=== PATIENT | female | born 1990 | race Caucasian/White ===

== ENCOUNTER 2018-02-28 19:01 | Emergency (ER) | payer SELFPAY ==
[2018-02-28] MEDS ORDERED: SULFAMETHOXAZOLE/TRIMETHOPRIM 800-160 MG TABLET PO ONE (20:30)
[2018-02-28] MEDS ORDERED: DICLOXACILLIN SODIUM 250 MG CAPSULE PO ONE (20:44)
[2018-02-28] MEDS ORDERED: CEPHALEXIN 500 MG CAPSULE PO ONE (20:48)
--- NOTE | 2018-02-28 20:48 | ER Document Report ---
HPI - HPI Pain Level: 5 Context: Patient is a 27-year-old female who presents emergency room with chief complaint swelling in the medial aspect of her right pinky. Patient states that it is been there for the past week but got worse over the past 3 days. She admits to significant swelling, redness and tenderness she denies any streaking, fever or chills. Patient denies any purulent drainage she does admit to history of recurrent tobacco user Patient is currently in a methadone program - DERM Skin Color: Normal Past Medical History - Social History Smoking Status: Current Every Day Smoker Chew tobacco use (# tins/day): No Frequency of alcohol use: None Drug Abuse: None Family History: Reviewed & Not Pertinent Patient has suicidal ideation: No Patient has homicidal ideation: No Pulmonary Medical History: Reports: Hx Asthma Neurological Medical History: Reports: Hx Migraine Renal/ Medical History: Denies: Hx Peritoneal Dialysis Past Surgical History: Reports: Hx Tonsillectomy Vertical Provider Document - CONSTITUTIONAL Agree With Documented VS: Yes Notes: PHYSICAL EXAM GENERAL: Alert, interacts well. EXTREMITIES: Moves all 4 extremities spontaneously. No edema, radial pulses 2/4 bilaterally. No cyanosis. NEUROLOGICAL: Alert and oriented x4. Normal speech. PSYCH: Normal affect, normal mood. SKIN: Warm, dry, normal turgor. Patient with evidence of cellulitis and eschar over the medial aspect of the right proximal phalanx - INFECTION CONTROL TRAVEL OUTSIDE OF THE [place] IN LAST 30 DAYS: No Course - Re-evaluation Re-evalutation: 02/28/18 22:37 Patient is a 27-year-old female who presents with cellulitis and concerns for underlying abscess of the proximal phalanx of the right pinky finger. X-ray without any evidence of osseous involvement. Vital signs are stable. Patient' s declining for incision and drainage wound was cleaned and the removed to allow for proper evacuation of purulent material within the site. Patient initiated on antibiotics and to follow-up with primary care. - Vital Signs Vital signs: Temp Pulse Resp BP Pulse Ox 98.4 F 86 16 76/62 L 99 02/28/18 19:12 02/28/18 19:12 02/28/18 19:12 02/28/18 19:12 02/28/18 19:12 - Diagnostic Test Radiology reviewed: Image reviewed, Reports reviewed Discharge - Discharge Clinical Impression: Cellulitis Condition: Good Disposition: HOME, SELF-CARE Instructions: Abscess (OM), MRSA Cellulitis ([facility]) Prescriptions: Cephalexin Monohydrate [Keflex 500 mg Capsule] 500 mg PO Q6H 5 Days capsule Sulfamethoxazole/Trimethoprim [Bactrim Ds Tablet] 1 each PO BID #10 tablet Referrals: ADAM RUST MD [COMMUNITY BASED STAFF] - Follow up in 3-5 days
--- NOTE | 2018-02-28 21:09 | RADIOLOGY REPORT (SQ) ---
EXAM DESCRIPTION: FINGER RIGHT COMPLETED DATE/TIME: 02/28/2018 8:59 pm REASON FOR STUDY: swelling, h/o MRSA COMPARISON: None. NUMBER OF VIEWS: Three views. TECHNIQUE: AP, lateral, and oblique images acquired of the right fifth finger. LIMITATIONS: None. FINDINGS: MINERALIZATION: Normal. BONES: No acute fracture or dislocation. No worrisome bone lesions. SOFT TISSUES: Soft tissue swelling. No foreign body. OTHER: No other significant finding. IMPRESSION: SOFT TISSUE SWELLING WITHOUT ACUTE OSSEOUS ABNORMALITY. COMMENT: SITE OF TRAUMA/COMPLAINT MARKED/STAMP COMPLETED: YES. TECHNICAL DOCUMENTATION: JOB ID: [id number] [employer]- All Rights Reserved Reading location - IP/workstation name: [email or web address]
[2018-02-28] MEDS ORDERED: LIDOCAINE 1% INJ-PF (10 MG/ML) 30 ML SDV INJ ONE (21:14)
[2018-02-28 22:48] VITALS: BP 122/70
== END 2018-02-28 22:48 | disposition home or self-care (01) ==
LOC: ER 19:01
DX: L03.011 Cellulitis of right finger (principal); M79.89 Other specified soft tissue disorders; F17.200 Nicotine dependence, unspecified, uncomplicated; J45.909 Unspecified asthma, uncomplicated
CPT/HCPCS: 99283

== ENCOUNTER 2018-04-27 18:09 | Emergency (ER) | payer SELFPAY ==
[2018-04-27] MEDS ORDERED: ONDANSETRON 4 MG TAB.RAPDIS PO ONE (19:34)
[2018-04-27] MEDS ORDERED: NORMAL SALINE 1000 ML 1,000 ML IV ONE (19:35)
--- NOTE | 2018-04-27 19:37 | ER Document Report ---
ED Medical Screen (RME) - General Chief Complaint: Nausea/Vomiting Stated Complaint: VOMITING, HEADACHE Time Seen by Provider: 04/27/18 19:34 Notes: 27-year-old female, at "around 4 months ", chief complaint of vomiting. She states she has vomiting related to into the second trimester with every , states she ran out of Zofran, states she is dehydrated and she cannot stop vomiting every time she eats or drinks. Vomited at least 6 times today. Denies fever chills, denies any particular area of abdominal pain. She takes methadone, denies any other medications. Denies vaginal bleeding. TRAVEL OUTSIDE OF THE [place] IN LAST 30 DAYS: No - Related Data Allergies/Adverse Reactions: cefaclor [From Ceclor] Allergy (Verified 04/27/18 18:15) sumatriptan [From Imitrex] Allergy (Verified 04/27/18 18:15) Past Medical History Pulmonary Medical History: Reports: Hx Asthma Neurological Medical History: Reports: Hx Migraine Renal/ Medical History: Denies: Hx Peritoneal Dialysis Past Surgical History: Reports: Hx Tonsillectomy Physical Exam - Vital signs Vitals: Temp Pulse Resp BP Pulse Ox 98.0 F 71 18 119/61 100 04/27/18 18:17 04/27/18 18:17 04/27/18 18:17 04/27/18 18:17 04/27/18 18:17 - Cardiovascular Rhythm: Regular. No: Tachycardia Heart sounds: Normal auscultation, S1 appreciated, S2 appreciated - Abdominal Tenderness: Tender - Minimal upper abdominal tenderness, difficult to examine with sitting position in triage Course - Re-evaluation Re-evalutation: 04/27/18 19:37 I have greeted and performed a rapid initial assessment of this patient. A comprehensive ED assessment and evaluation of the patient, analysis of test results and completion of the medical decision making process will be conducted by additional ED providers. - Vital Signs Vital signs: Temp Pulse Resp BP Pulse Ox 98.0 F 71 18 119/61 100 04/27/18 18:17 04/27/18 18:17 04/27/18 18:17 04/27/18 18:17 04/27/18 18:17
[2018-04-27 20:20] LABS: ABSOLUTE EOSINOPHILS # (AUTO) 0.2 10^3/uL (0.0-0.6); ABSOLUTE LYMPHOCYTES (AUTO) 1.6 10^3/uL (0.5-4.7); ABSOLUTE MONOCYTES (AUTO) 0.2 10^3/uL (0.1-1.4); ABSOLUTE NEUT (AUTO) 3.7 10^3/uL (1.7-8.2); BASOPHILS % (AUTO) 0.4 % (0-2); EOSINOPHILS % (AUTO) 3.6 % (0-6); HEMATOCRIT 34.2 % (36.0-47.0); HEMOGLOBIN 11.3 g/dL (12.0-15.5); LYMPHOCYTES % (AUTO) 27.7 % (13-45); MEAN CORPUSCULAR HEMOGLOBIN 28.7 pg (27.0-33.4); MEAN CORPUSCULAR HGB CONC 33.1 g/dL (32.0-36.0); MEAN CORPUSCULAR VOLUME 87 fl (80-97); MONOCYTES % (AUTO) 4.2 % (3-13); PLATELET COUNT 224 10^3/uL (150-450); RED BLOOD COUNT 3.94 10^6/uL (3.72-5.28); RED CELL DISTRIBUTION WIDTH 17.5 % (11.5-14.0); SEGMENTED NEUTROPHILS % (AUTO) 64.1 % (42-78); TOTAL CELLS COUNTED % (AUTO) 100 %; WHITE BLOOD COUNT 5.7 10^3/uL (4.0-10.5)
[2018-04-27] MEDS ORDERED: ONDANSETRON ODT 4 MG TAB (6 TAB/ER DISP) PO PRN (20:27)
[2018-04-27 20:30] VITALS: BP 109/73
--- NOTE | 2018-04-27 20:30 | ER Document Report ---
HPI - HPI Pain Level: 1 Context: 27-year-old female, at "around 4 months ", chief complaint of vomiting. She states she has vomiting related to into the second trimester with every , states she ran out of Zofran, states she is dehydrated and she cannot stop vomiting every time she eats or drinks. Vomited at least 6 times today. Denies fever chills, denies any particular area of abdominal pain. She takes methadone, denies any other medications. Denies vaginal bleeding. - DERM Skin Color: Normal Past Medical History - General Information source: Patient - Social History Smoking Status: Current Every Day Smoker Smoking Education Provided: Yes - <3 min Drug Abuse: None Lives with: Alone Family History: Reviewed & Not Pertinent Patient has suicidal ideation: No Patient has homicidal ideation: No Pulmonary Medical History: Reports: Hx Asthma Neurological Medical History: Reports: Hx Migraine Renal/ Medical History: Denies: Hx Peritoneal Dialysis Past Surgical History: Reports: Hx Tonsillectomy - Immunizations Hx Diphtheria, Pertussis, Tetanus Vaccination: Yes Vertical Provider Document - CONSTITUTIONAL General Appearance: WD/WN, No Apparent Distress - INFECTION CONTROL TRAVEL OUTSIDE OF THE [place] IN LAST 30 DAYS: No - HEENT HEENT: Atraumatic, Normal ENT Exam, Normocephalic - NECK Neck: Normal Inspection - RESPIRATORY Respiratory: Breath Sounds Normal, No Respiratory Distress - CARDIOVASCULAR Cardiovascular: Regular Rate, Regular Rhythm - GI/ABDOMEN Gastrointestinal: Abdomen Soft. negative: Abdomen Non-Tender - Very minimal generalized abdominal tenderness, nonspecific, no guarding - BACK Back: Normal Inspection - MUSCULOSKELETAL/EXTREMETIES Musculoskeletal/Extremeties: MAEW, FROM, Non-Tender - NEURO Level of Consciousness: Awake, Alert, Appropriate - DERM Integumentary: Warm, Dry, No Rash Course - Re-evaluation Re-evalutation: Workup incomplete (only CBC resulted), however patient states she is ready to leave, not willing to stay for additional evaluation. She has had the zofran, reports she feels fine now, has been drinking fluids since she was medicated. States she has a followup with the health department already scheduled for tomorrow, wants testing then. Requests zofran for home. CBC is unremarkable. Patient is not tachycardic, hypotensive, and she is quite well-appearing. No vaginal bleeding, lower abdominal tenderness, or reported symptoms suggesting ectopic or rupture. Nonspecific abdominal pain with no particular areas of tenderness, no guarding. Discharged with medications, discussed return precautions, patient states understanding and agreement. - Vital Signs Vital signs: Temp Pulse Resp BP Pulse Ox 98.0 F 71 18 119/61 100 04/27/18 18:17 04/27/18 18:17 04/27/18 18:17 04/27/18 18:17 04/27/18 18:17 - Laboratory Result Diagrams: 04/27/18 20:00 04/27/18 20:00 Laboratory results interpreted by me: 04/27/18 20:00 Hgb 11.3 L Hct 34.2 L RDW 17.5 H Discharge - Discharge Clinical Impression: Vomiting affecting Condition: Stable Disposition: HOME, SELF-CARE Additional Instructions: Your workup to this point did not show any concerning abnormalities. Take Zofran as prescribed, drink plenty of fluids, you can take diphenhydramine to help with nausea as well. Pepcid can help with stomach upset as well. Start with bland foods, slowly progress. Follow-up closely with health department tomorrow and then women's health as referred. Return if you worsen including uncontrolled vomiting, passing out, vaginal bleeding, severe abdominal pain, fever, or any other concerning symptoms. Prescriptions: Ondansetron [Zofran Odt 4 mg Tablet] 1 - 2 tab PO Q4H PRN #30 tab.rapdis PRN Reason: For Nausea/Vomiting Referrals: [facility] [Provider Group] - Follow up as needed
== END 2018-04-27 20:43 | disposition home or self-care (01) ==
LOC: ER 18:09
DX: O21.9 Vomiting of pregnancy, unspecified (principal); O99.519 Diseases of the respiratory system complicating pregnancy, unspecified trimester; J45.909 Unspecified asthma, uncomplicated; O99.330 Smoking (tobacco) complicating pregnancy, unspecified trimester; Z79.891 Long term (current) use of opiate analgesic; Z3A.00 Weeks of gestation of pregnancy not specified
CPT/HCPCS: 99284; 36415; 85025; S0119

== ENCOUNTER 2018-08-09 14:25 | Emergency (ER) | payer SELFPAY ==
[2018-08-09 14:36] VITALS: BP 105/63
--- NOTE | 2018-08-09 15:03 | ER Document Report ---
ED General - General Chief Complaint: Abdominal Pain Stated Complaint: ABDOMINAL PAIN Time Seen by Provider: 08/09/18 14:38 Notes: Patient is a 28-year-old female, , unknown gestational age that presents to the emergency department for chief complaint of pelvic cramping and fullness. Patient states she is been having these symptoms over the last several days, and seemingly worse today, she had associated nausea but no vomiting. She claims she is had some dysuria as well. She does not know the first date of her last menstrual period, she estimates may be she had a period in November, states she has irregular periods, because she had an IUD, that was removed 2 years ago. She denies any other symptoms at this time, denies any recent fevers, chills, night sweats, chest pain, shortness of breath, difficulty breathing. She does have a history of opiate abuse, is currently on methadone. Past Medical History: Opiate abuse and use Past Surgical History: Denies pertinent surgical history Social History: Admits to smoking cigarettes, denies current alcohol use, former illicit drug use Family History: Reviewed and noncontributory for presenting illness Allergies: Reviewed, see documented allergy list. REVIEW OF SYSTEMS: Other than noted above, the 12 point review of systems was reviewed with the patient and were negative, all pertinent findings are included in the HPI. PHYSICAL EXAMINATION: Vital signs reviewed, nursing noted reviewed. GENERAL: Well-appearing, well-nourished and in no acute distress. HEAD: Atraumatic, normocephalic. EYES: Eyes appear normal, extraocular movements intact, sclera anicteric, conjunctiva are normal. ENT: nares patent, oropharynx clear without exudates. Moist mucous membranes. NECK: Normal range of motion, supple without lymphadenopathy LUNGS: Breath sounds clear to auscultation bilaterally and equal. No wheezes rales or rhonchi. HEART: Regular rate and rhythm without murmurs ABDOMEN: Soft, gravid abdomen, nontender to palpate, normoactive bowel sounds. No rebound, guarding, or rigidity. No masses appreciated. EXTREMITIES: Nontender, good range of motion, no pitting or edema. NEUROLOGICAL: No focal neurological deficits. Moves all extremities spontaneously Motor and sensory grossly intact on exam. PSYCH: Normal mood, normal affect. SKIN: Warm, Dry, normal turgor, no rashes or lesions noted on exposed skin TRAVEL OUTSIDE OF THE [place] IN LAST 30 DAYS: No - Related Data Allergies/Adverse Reactions: cefaclor [From Ceclor] Allergy (Verified 08/09/18 14:33) sumatriptan [From Imitrex] Allergy (Verified 08/09/18 14:33) Past Medical History - Social History Smoking Status: Current Every Day Smoker Frequency of alcohol use: None Drug Abuse: None Family History: Reviewed & Not Pertinent Patient has suicidal ideation: No Patient has homicidal ideation: No Pulmonary Medical History: Reports: Hx Asthma Neurological Medical History: Reports: Hx Migraine Renal/ Medical History: Denies: Hx Peritoneal Dialysis Past Surgical History: Reports: Hx Tonsillectomy - Immunizations Hx Diphtheria, Pertussis, Tetanus Vaccination: Yes Physical Exam - Vital signs Vitals: Temp Pulse Resp BP Pulse Ox 98.1 F 95 18 105/63 97 08/09/18 14:32 08/09/18 14:32 08/09/18 14:32 08/09/18 14:32 08/09/18 14:32 Course - Re-evaluation Re-evalutation: Patient seen and examined in triage, vital signs reviewed. Patient does not know her current state of , as she does not recall first date of her last menstrual period, she thinks it may have been November. She has had some nausea associated with this cramping and fullness in her pelvis. I performed bedside ultrasound demonstrated a single live intrauterine , with movements, and visualized heartbeat, I would estimate that the patient's gestational age is approximately 34 weeks, I discussed this with Dr. Armendariz with [facility], who graciously accepted the patient to be seen in labor and delivery, for a labor check and nonstress monitoring. Patient agreeable to this plan of care. - Vital Signs Vital signs: Temp Pulse Resp BP Pulse Ox 98.1 F 95 18 105/63 97 08/09/18 14:32 08/09/18 14:32 08/09/18 14:32 08/09/18 14:32 08/09/18 14:32 - Laboratory Laboratory results interpreted by me: 08/09/18 14:28 Urine HCG, Qual POSITIVE H Discharge - Discharge Clinical Impression: Abdominal pain during Qualifiers: Trimester: unspecified trimester Qualified Code(s): O26.899 - Other specified related conditions, unspecified trimester; R10.9 - Unspecified abdominal pain; R10.9 - Unspecified abdominal pain Condition: Stable Disposition: LABOR CHECK Admitting Provider: [facility] - Dr. Armendariz
== END 2018-08-09 15:03 | disposition admitted as inpatient to this hospital (09) ==
LOC: ER 14:25
DX: O26.899 Other specified pregnancy related conditions, unspecified trimester (principal); R10.2 Pelvic and perineal pain; R11.0 Nausea; R30.0 Dysuria; O99.519 Diseases of the respiratory system complicating pregnancy, unspecified trimester; J45.909 Unspecified asthma, uncomplicated; O99.330 Smoking (tobacco) complicating pregnancy, unspecified trimester; F17.210 Nicotine dependence, cigarettes, uncomplicated; Z3A.00 Weeks of gestation of pregnancy not specified; Z79.891 Long term (current) use of opiate analgesic; Z88.1 Allergy status to other antibiotic agents; Z88.6 Allergy status to analgesic agent
CPT/HCPCS: 81025; 99284

== ENCOUNTER 2018-08-09 15:07 | Outpatient (CLI) | payer SELFPAY ==
[2018-08-09 15:51] LABS: APPEARANCE,URINE SLIGHTLY-CLOUDY; BILIRUBIN,URINE SMALL (NEGATIVE); COLOR,URINE AMBER; GLUCOSE, URINE NEGATIVE (NEGATIVE); KETONES,URINE NEGATIVE (NEGATIVE); LEUKOCYTE ESTERASE,URINE TRACE (NEGATIVE); NITRITE,URINE NEGATIVE (NEGATIVE); PROTEIN,URINE 30 mg/dL (NEGATIVE); URINE SPECIFIC GRAVITY 1.034
[2018-08-09 15:58] LABS: ABSOLUTE EOSINOPHILS # (AUTO) 0.2 10^3/uL (0.0-0.6); ABSOLUTE LYMPHOCYTES (AUTO) 1.6 10^3/uL (0.5-4.7); ABSOLUTE MONOCYTES (AUTO) 0.3 10^3/uL (0.1-1.4); ABSOLUTE NEUT (AUTO) 5.7 10^3/uL (1.7-8.2); BASOPHILS % (AUTO) 0.4 % (0-2); EOSINOPHILS % (AUTO) 2.7 % (0-6); HEMATOCRIT 30.7 % (36.0-47.0); HEMOGLOBIN 10.3 g/dL (12.0-15.5); LYMPHOCYTES % (AUTO) 21.1 % (13-45); MEAN CORPUSCULAR HEMOGLOBIN 30.9 pg (27.0-33.4); MEAN CORPUSCULAR HGB CONC 33.7 g/dL (32.0-36.0); MEAN CORPUSCULAR VOLUME 92 fl (80-97); MONOCYTES % (AUTO) 3.5 % (3-13); PLATELET COUNT 236 10^3/uL (150-450); RED BLOOD COUNT 3.35 10^6/uL (3.72-5.28); RED CELL DISTRIBUTION WIDTH 16.2 % (11.5-14.0); SEGMENTED NEUTROPHILS % (AUTO) 72.3 % (42-78); TOTAL CELLS COUNTED % (AUTO) 100 %; WHITE BLOOD COUNT 7.8 10^3/uL (4.0-10.5)
[2018-08-09 16:02] LABS: URINE AMPHETAMINES SCREEN NEGATIVE; URINE BARBITURATES SCREEN NEGATIVE; URINE COCAINE SCREEN NEGATIVE; URINE PHENCYCLIDINE SCREEN NEGATIVE
[2018-08-09 16:10] LABS: URINE BENZODIAZEPINES SCREEN UNCONFIRMED POSITIVE; URINE MARIJUANA (THC) SCREEN UNCONFIRMED POSITIVE; URINE METHADONE SCREEN UNCONFIRMED POSITIVE
[2018-08-09 16:48] LABS: RUBELLA INTERPRETATION POSITIVE
--- NOTE | 2018-08-09 18:18 | RADIOLOGY REPORT (SQ) ---
EXAM DESCRIPTION: U/S OB 14+ TRNABD 1GES W/O DOP COMPLETED DATE/TIME: 08/09/2018 6:04 pm REASON FOR STUDY: anatomy scan, LAVONNE, EGA, placenta placement COMPARISON: None. TECHNIQUE: Static and Dynamic grayscale imaging performed of gravid uterus using transabdominal appr oach. Additional selected color Doppler and spectral images recorded. All stored on PACS. LIMITATIONS: None. FINDINGS: FETUSES SEEN:1 EGA: 24 weeks 5 days Calculated using BPD,FL,HC,AC documented on images. No discrepancy with clinica l dates. HEATHER: 11/24/2018 EFW: 688 g grams PERCENTILE: Not calculated. LAVONNE: 12.4 cm. PLACENTA: Posterior. Grade 1. PRESENTATION: Cephalic. ANATOMY: HEART RATE: 133 beats per minute. FOUR CHAMBER HEART: Visualized. THREE VESSEL CORD: Yes. CORD INSERTION: Visualized. KIDNEYS AND BLADDER: Visualized. Appear normal. STOMACH: Visualized. Appears normal. SPINE: Normal as visualized. BRAIN AND LATERAL VENTRICLES: Appear normal. Limited evaluation of the posterior fossa. OTHER: No other significant finding. MATERNAL ADNEXA: Maternal ovaries not visualized. CERVICAL LENGTH: 3 cm. Closed. OTHER: No other significant finding. IMPRESSION: LIVING INTRAUTERINE . ESTIMATED GESTATIONAL AGE 24 weeks 5 days. NO VISUALIZED ANOMALIES. Trimester of : Second trimester - 13 weeks 1 day to 27 weeks 6 days. TECHNICAL DOCUMENTATION: JOB ID: [id number] [employer]- All Rights Reserved Reading location - IP/workstation name: [email or web address]
[2018-08-11 07:34] LABS: HEPATITS B SURFACE ANTIGEN Negative (Negative)
[2018-08-11 07:35] LABS: HEPATITIS C VIRUS AB >11.0 s/co ratio (0.0-0.9)
== END 2018-08-09 18:59 | disposition home or self-care (01) ==
LOC: LC 15:07
PROVIDERS: ATTEND Obstetrics & Gynecology
PROC: 4A1HXCZ Monitoring of Products of Conception, Cardiac Rate, External Approach (ICD-10-PCS; principal; 2018-08-09)
DX: O26.893 Other specified pregnancy related conditions, third trimester (principal); R10.2 Pelvic and perineal pain; M54.9 Dorsalgia, unspecified; R51 Headache; R11.0 Nausea; Z3A.34 34 weeks gestation of pregnancy
CPT/HCPCS: 59025; 86900; 86901; 36415; 87070; 87205; 86850; 85025; 87075; 87077; 86762; 86592; 81001; 87340; 86701; 87186; 80307; 80345; 86803; 86804; 76805; G0480 ×3; 80349

== ENCOUNTER 2018-10-18 20:39 | Outpatient (CLI) | payer SELFPAY ==
[2018-10-18] MEDS ORDERED: OXYTOCIN/NORMAL SALINE 20 UNIT/1,000 ML RTUINJ ONE (21:06)
[2018-10-18] MEDS ORDERED: PENICILLIN G-K 5 MILLION UNIT VIAL ONE (21:06)
[2018-10-18] MEDS ORDERED: LIDOCAINE 1% INJ-PF (10 MG/ML) 30 ML SDV ONE (21:06)
[2018-10-18] MEDS ORDERED: OXYTOCIN 10 UNIT/ML VIAL ONE (21:06)
[2018-10-18] MEDS ORDERED: MISOPROSTOL 0.2 MG TABLET ONE (21:06)
[2018-10-18] MEDS ORDERED: RINGERS SOLUTION,LACTATED 1,000 ML IV ONE (21:12)
[2018-10-18] MEDS ORDERED: PENICILLIN G POTASSIUM 5,000,000 UNIT in DEXTROSE 5%-WATER 100 ML IV ONE (21:12)
[2018-10-18 21:34] LABS: ABSOLUTE BASOPHILS # (AUTO) 0.1 10^3/uL (0.0-0.2); ABSOLUTE EOSINOPHILS # (AUTO) 0.1 10^3/uL (0.0-0.6); ABSOLUTE LYMPHOCYTES (AUTO) 2.4 10^3/uL (0.5-4.7); ABSOLUTE MONOCYTES (AUTO) 0.7 10^3/uL (0.1-1.4); ABSOLUTE NEUT (AUTO) 16.1 10^3/uL (1.7-8.2); BASOPHILS % (AUTO) 0.3 % (0-2); EOSINOPHILS % (AUTO) 0.4 % (0-6); HEMATOCRIT 28.1 % (36.0-47.0); HEMOGLOBIN 9.3 g/dL (12.0-15.5); LYMPHOCYTES % (AUTO) 12.3 % (13-45); MEAN CORPUSCULAR HGB CONC 33.1 g/dL (32.0-36.0); MEAN CORPUSCULAR VOLUME 91 fl (80-97); MONOCYTES % (AUTO) 3.5 % (3-13); PLATELET COUNT 420 10^3/uL (150-450); RED BLOOD COUNT 3.09 10^6/uL (3.72-5.28); RED CELL DISTRIBUTION WIDTH 14.7 % (11.5-14.0); SEGMENTED NEUTROPHILS % (AUTO) 83.5 % (42-78); TOTAL CELLS COUNTED % (AUTO) 100 %; WHITE BLOOD COUNT 19.3 10^3/uL (4.0-10.5)
[2018-10-18 21:47] LABS: APPEARANCE,URINE TURBID; BILIRUBIN,URINE SMALL (NEGATIVE); GLUCOSE, URINE NEGATIVE (NEGATIVE); KETONES,URINE NEGATIVE (NEGATIVE); LEUKOCYTE ESTERASE,URINE LARGE (NEGATIVE); NITRITE,URINE NEGATIVE (NEGATIVE); PROTEIN,URINE 100 mg/dL (NEGATIVE); URINE SPECIFIC GRAVITY 1.025
[2018-10-18 21:48] LABS: COLOR,URINE YELLOW
[2018-10-18 22:03] LABS: URINE BARBITURATES SCREEN NEGATIVE; URINE MARIJUANA (THC) SCREEN NEGATIVE; URINE PHENCYCLIDINE SCREEN NEGATIVE
--- NOTE | 2018-10-18 22:09 | Admission Physical ---
Datetime Report Generated by CPN: 10/18/2018 22:08 CURRENT ADMISSION Chief Complaint: Uterine Contractions Indication for Induction: Not Applicable Admit Impression : , Intrauterine Admit Plan: Initiate Labor Protocol ALLERGIES Medication Allergies: Yes Medication Allergies: cefaclor (08/09/2018); sumatriptan (08/09/2018) Food Allergies: NONE Environmental Allergies: NONE OBSTETRICAL HISTORY EDC: 11/24/2018 00:00 : 5 Para: 3 Term: 3 : 0 SAB: 0 IAB: 1 Ectopic: 0 Livin Cesareans: 0 VBACs: 0 Multiple Births: 0 Gestational Diabetes: No Rh Sensitization: No Incompetent Cervix: No CARMEN: No Infertility: No ART Treatment: No Uterine Anomaly: No IUGR: No Hx Previous C/S: No Macrosomia: No Hx Loss/Stillborn: No PIH: No Hx : No Placenta Previa/Abruption: No Depression/PP Depression: No PTL/PROM: No Post Hemorrhage: No Obstetrical History Comments: G1- 38 WEEKS, NO PROBLEMS G2- 38 WEEKS, NO PROBLEMS G3- IAB G4- 38 WEEKS, NUCHAL CORD G5- CURRENT- NPC SEE RECORDS Alcohol: No Marijuana : Yes Marijuana Frequency: Occasional Years Used: 3 Previous Treatment: None Marijuana Comments: 1 WEEK AGO Cocaine: No Other Illicit Drugs: No Cigarettes: Current Everyday Smoker. [id number] Cigarette Frequency: 5 - 10 per day Advised to Stop: No MEDICAL HISTORY Diabetes: No Blood Transfusion: No Pulmonary Disease (Asthma, TB): No Breast Disease: No Hypertension: No Letterpress Setter Surgery: No Heart Disease: No Hosp/Surgery: Yes Autoimmune Disorder: No Anesthetic Complications: No Kidney Disease: No Abnormal Pap Smear: No Neuro/Epilepsy: No Psychiatric Disorders: No Other Medical Diseases: Yes Hepatitis/Liver Disease: No Significant Family History: No Varicosities/Phlebitis: No Trauma/Violence : No Thyroid Dysfunction: No Medical History Comments: CHILDBIRTH MRSA x 5 EPISODES IN 12 YEARS INFECTIOUS HISTORY Gonorrhea: No Genital Herpes: No Chlamydia: No Tuberculosis: No Syphilis: No Hepatitis: Yes HIV/AIDS Exposure: No Rash or Viral Illness: No HPV: No Infectious History Comments: HEP C PHYSICAL EXAM General: Normal HEENT: Normal Neurologic: Normal Thyroid: Normal Heart: Normal Lungs: Normal Breast: Deferred Back: Normal Abdomen: Normal Genitourinary Exam: Normal Extremities: Normal DTRs: Normal Pelvic Type: Adequate FETUS A EGA: 34.5 Monitoring: External US Admit Comment: no care history of drug abuse PLANS FOR LABOR AND DELIVERY Labor and Delivery: None Pain Management: Epidural Feeding Preference: Formula Circumcision: Yes INFORMED CONSENT Signature: with User ID: [email or web address]
[2018-10-18] MEDS ORDERED: ACETAMINOPHEN WITH CODEINE #3 TABLET PO PRN (22:17)
[2018-10-18] MEDS ORDERED: BENZOCAINE/MENTHOL AEROSOL SPRAY 56 ML TOP PRN (22:17)
[2018-10-18] MEDS ORDERED: GLYCERIN/WITCH HAZEL LEAF 1 EACH MED..PAD TP PRN (22:17)
[2018-10-18] MEDS ORDERED: DIBUCAINE 1% OINTMENT 28 GM TP PRN (22:17)
[2018-10-18] MEDS ORDERED: PSEUDOEPHEDRINE HCL 30 MG TABLET PO PRN (22:17)
[2018-10-18] MEDS ORDERED: PROMETHAZINE HCL 25 MG TABLET PO PRN (22:17)
[2018-10-18] MEDS ORDERED: MEASLES,MUMPS&RUBELLA VACC/PF 0.5 ML VIAL SUBCUT PRN (22:17)
[2018-10-18] MEDS ORDERED: ZOLPIDEM TARTRATE 5 MG TABLET PO PRN (22:17)
[2018-10-18] MEDS ORDERED: OXYTOCIN/NORMAL SALINE 20 UNIT/1,000 ML RTUINJ IV PRN (22:17)
[2018-10-18] MEDS ORDERED: ACETAMINOPHEN 650 MG SUPP.RECT PR PRN (22:17)
[2018-10-18] MEDS ORDERED: DIPH/PERTUSS(ACELL)/TETANUS VAC/PF 0.5 ML SYR (>=10YO) IM PRN (22:17)
[2018-10-18] MEDS ORDERED: NA PHOS,M-B/NA PHOS,DI-BA (ADULT) 133 ML ENEMA PR PRN (22:17)
[2018-10-18] MEDS ORDERED: DIPHENHYDRAMINE HCL 25 MG CAPSULE PO PRN (22:17)
[2018-10-18] MEDS ORDERED: MAGNESIUM HYDROXIDE SUSP 30 ML UDCUP PO PRN (22:17)
[2018-10-18] MEDS ORDERED: PROMETHAZINE HCL 25 MG SUPP.RECT PR PRN (22:17)
[2018-10-18] MEDS ORDERED: PROMETHAZINE HCL INJ 25 MG/1 ML VIAL IV PRN (22:17)
[2018-10-18] MEDS ORDERED: IBUPROFEN 800 MG TABLET ONE (22:21)
--- NOTE | 2018-10-18 22:21 | PDOC DELIVERY SUMMARY ---
Delivery Summary - Maternal Risk Factors: No Care Ruptured Membranes: AROM Fluids: Clear - Delivery Presentation: Vertex Uterine Contraction Monitoring: External Support Person Present: No Placenta: Within Normal Limits Number of Vessels (Cord): 3 Nuchal Cord: Yes - Medications Type of Anesthesia:: Other
[2018-10-18 22:27] LABS: URINE BENZODIAZEPINES SCREEN UNCONFIRMED POSITIVE; URINE COCAINE SCREEN UNCONFIRMED POSITIVE
[2018-10-18 22:28] LABS: URINE METHADONE SCREEN UNCONFIRMED POSITIVE
[2018-10-18 22:37] LABS: RUBELLA INTERPRETATION POSITIVE
[2018-10-19] MEDS ORDERED: PENICILLIN G POTASSIUM 2,500,000 UNIT in DEXTROSE 5%-WATER 50 ML IV SCH (01:13)
[2018-10-19] MEDS ORDERED: IBUPROFEN 800 MG TABLET PO SCH (06:00)
[2018-10-19 07:54] LABS: HEMATOCRIT 25.7 % (36.0-47.0); HEMOGLOBIN 8.4 g/dL (12.0-15.5); MEAN CORPUSCULAR HEMOGLOBIN 29.6 pg (27.0-33.4); MEAN CORPUSCULAR HGB CONC 32.8 g/dL (32.0-36.0); MEAN CORPUSCULAR VOLUME 90 fl (80-97); PLATELET COUNT 351 10^3/uL (150-450); RED BLOOD COUNT 2.84 10^6/uL (3.72-5.28); RED CELL DISTRIBUTION WIDTH 14.8 % (11.5-14.0); WHITE BLOOD COUNT 21.2 10^3/uL (4.0-10.5)
[2018-10-19 08:31] VITALS: BP 105/56
[2018-10-19] MEDS ORDERED: DOCUSATE SODIUM 100 MG CAPSULE PO SCH (10:00)
[2018-10-19] MEDS ORDERED: PRENATAL VITAMIN W DHA CAPSULE PO SCH (10:00)
[2018-10-19] MEDS ORDERED: FAMOTIDINE 20 MG TABLET PO SCH (10:00)
[2018-10-19] MEDS ORDERED: SENNOSIDES/DOCUSATE 8.6-50 MG 1 EACH TABLET PO SCH (10:00)
[2018-10-19] MEDS ORDERED: FERROUS SULFATE 325 MG TABLET PO SCH (10:00)
--- NOTE | 2018-10-19 14:05 | PDOC PROGRESS REPORT ---
Subjective-OB Progress Note for:: 10/19/18 Subjective: field secretary on post states pt signed out AMA Physical Exam (OB) Vital Signs: Temp Pulse Resp BP Pulse Ox 98.0 F 85 18 105/56 L 100 10/19/18 08:30 10/19/18 08:30 10/19/18 08:30 10/19/18 08:30 10/19/18 08:30 Intake & Output 10/18/18 10/19/18 10/20/18 06:59 06:59 06:59 Weight 66.678 kg - General General Appearance: Other - no exam was done, pt was not seen by CNM today Objective-Diagnostic Laboratory: 10/19/18 07:22 10/18/18 10/18/18 10/18/18 21:18 21:18 21:31 WBC 19.3 H RBC 3.09 L Hgb 9.3 L Hct 28.1 L MCV 91 MCH 30.0 MCHC 33.1 RDW 14.7 H Plt Count 420 Seg Neutrophils % 83.5 H Lymphocytes % 12.3 L Monocytes % 3.5 Eosinophils % 0.4 Basophils % 0.3 Absolute Neutrophils 16.1 H Absolute Lymphocytes 2.4 Absolute Monocytes 0.7 Absolute Eosinophils 0.1 Absolute Basophils 0.1 Urine Color YELLOW Urine Appearance TURBID Urine pH 5.0 Ur Specific [place] 1.025 Urine Protein 100 H Urine Glucose (UA) NEGATIVE Urine Ketones NEGATIVE Urine Blood LARGE H Urine Nitrite NEGATIVE Ur Leukocyte Esterase LARGE H Urine WBC (Auto) >182 Urine RBC (Auto) 117 Blood Type O POSITIVE Antibody Screen NEGATIVE 10/19/18 07:22 WBC 21.2 H RBC 2.84 L Hgb 8.4 L Hct 25.7 L MCV 90 MCH 29.6 MCHC 32.8 RDW 14.8 H Plt Count 351 Seg Neutrophils % Lymphocytes % Monocytes % Eosinophils % Basophils % Absolute Neutrophils Absolute Lymphocytes Absolute Monocytes Absolute Eosinophils Absolute Basophils Urine Color Urine Appearance Urine pH Ur Specific [place] Urine Protein Urine Glucose (UA) Urine Ketones Urine Blood Urine Nitrite Ur Leukocyte Esterase Urine WBC (Auto) Urine RBC (Auto) Blood Type Antibody Screen Assessment and Plan(PN) - Assessment and Plan (1) Drug abuse during Is this a current diagnosis for this admission?: Yes (2) delivery Is this a current diagnosis for this admission?: Yes - Time Spent with Patient Time with patient: Less than 15 minutes - none Medications reviewed and adjusted accordingly: No - Disposition Disposition: unknown, pt left AMA
[2018-10-20 08:16] LABS: HEPATITS B SURFACE ANTIGEN Negative (Negative)
[2018-10-20 08:17] LABS: HEPATITIS C VIRUS AB >11.0 s/co ratio (0.0-0.9)
[2018-10-24 07:19] LABS: AMPHETAMINE CONFIRMATION UR Positive (.); BENZODIAZEPINE CONFIRMATION UR Positive (.); COCAINE METABOLITE CONFIRM UR Positive (.)
--- NOTE | 2018-10-28 17:50 | Delivery Summary ---
Del Sum A-C Datetime Report Generated by CPN: 10/28/2018 17:50 DELIVERY PERSONNEL DELIVERY PERSONNEL: [id number] Delivery Doctor:: Vishnu Fleming MD Labor and Delivery Nurse:: Amber Shelley RNvending machine host/hostess Nurse:: Yumiko Couch RN Nursery Nurse:: Saadia Eldridge RN Nursery Nurse:: Isis Salgado RN MSN Boat Hoist Operator Helper/SPUD GRADER: Sara Ross, ST MATERNAL INFORMATION Delivery Anesthesia: None Medications After Delivery: Pitocin Drip 20 Units/1000ml NSS Maternal Complications: Precipitous Labor (<3hrs); Other Other Maternal Complications: no care LABOR SUMMARY EDC: 11/24/2018 00:00 No. Babies in Womb: 1 Attempted: No Labor Anesthesia: None LABOR INFORMATION Reason for Induction: Not Applicable Onset of Labor: 10/18/2018 19:00 Complete Dilatation: 10/18/2018 21:53 Oxytocin: N/A Group B Beta Strep: unknown Antibiotics # of Doses: 1 Antibiotics Time of Last Dose: 2114 Name of Antibiotic Given: PCN Steroids Given: None Reason Steroids Not Administered: Not Applicable MEMBRANES Membranes Rupture Method: Artificial Rupture of Membranes: 10/18/2018 21:53 Length of Rupture (hr): 0.13 Amniotic Fluid Color: Clear Amniotic Fluid Amount: Moderate Amniotic Fluid Odor: Normal STAGES OF LABOR Stage 1 hr: 2 Stage 1 min: 53 Stage 2 hr: 0 Stage 2 min: 8 Stage 3 hr: 0 Stage 3 min: -58 Total Time in Labor hr: 2 Total Time in Labor min: 3 VAGINAL DELIVERY Episiotomy: None Laceration #1: None Laceration Extension #1: N/A Laceration Repair: Not Applicable Sponge Count Correct: Yes Sharps Count Correct: Yes CSECTION DELIVERY Primary Indication: N/A Secondary Indication: N/A CSection Incidence: N/A Labor: N/A Elective: N/A CSection Incision: N/A BABY A INFORMATION Delivery Date/Time: 10/18/2018 22:01 Method of Delivery: Vaginal Method of Delivery: Vaginal Born in Route : No : N/A Forceps: N/A Vacuum Extraction: N/A Shoulder Dystocia : No PRESENTATION/POSITION BABY A Presentation: Cephalic Cephalic Presentation: Vertex Vertex Position: Left Occipital Anterior Breech Presentation: N/A PLACENTA INFORMATION BABY A Placenta Delivery Time : 10/18/2018 21:03 Placenta Method of Delivery: Spontaneous Placenta Method of Delivery: Spontaneous Placenta Status: Delivered SCORES BABY A Heart Rate 1 min: >100 bpm Resp Effort 1 min: Good Cry Reflex Irritability 1 min: Cough or Sneeze or Pulls Away Muscle Tone 1 min: Active Motion Color 1 min: Blue/Pale SCORE 1 MIN: 8 Heart Rate 5 min: >100 bpm Resp Effort 5 min: Good Cry Reflex Irritability 5 min: Cough or Sneeze or Pulls Away Muscle Tone 5 min: Active Motion Color 5 min: Blue/Pale SCORE 5 MIN: 8 INFANT INFORMATION BABY A Gestational Age at Delivery: 34.5 Gestational Status: Late - 34- 36.6 Weeks Infant Outcome : Liveborn Condition : Stable Sex: Female Sex: Male IDENTIFICATION BABY A Infant Verification Date/Time: 10/18/2018 22:16 ID Band Number: [id number] Mother's Name Verified: Yes RN Verifying Infant: Ivana RN Additional Verifying Personnel: Birdie Couch RN WEIGHT/LENGTH BABY A Infant Birthweight (gm): 2120 Infant Weight (lb): 4 Infant Weight (oz): 11 Length (in): 16.50 Infant Length (cm): 41.91 CORD INFORMATION BABY A No. Cord Vessels: 3 Nuchal Cord : Around Neck x1, Tight Cord Blood Taken: Yes-For Eval (Mom's Blood Type - or O+) Infant Suction: Mouth ASSESSMENT BABY A Infant Complications: None Physical Findings at Delivery: Within Normal Limits Skin to Skin: No BABY B INFORMATION : N/A SIGNATURES Signature: with User ID: [email or web address]
[2018-11-01 09:54] LABS: METHADONE CONFIRMATION URINE Positive (.)
== END 2018-10-19 10:31 | disposition left against medical advice (07) ==
LOC: LC 20:39 → LR 21:06 → UNDOADMIN 21:06 → LR 10-19 00:16 → 2S 10-19 00:16 → UNDODISIN 10-19 10:31 → LC 10-19 10:31
PROVIDERS: ATTEND Obstetrics & Gynecology Gynecology
PROC: 10E0XZZ Delivery of Products of Conception, External Approach (ICD-10-PCS; principal; 2018-10-18)
DX: O60.14X0 Preterm labor third trimester with preterm delivery third trimester, not applicable or unspecified (principal); O69.1XX0 Labor and delivery complicated by cord around neck, with compression, not applicable or unspecified; O99.334 Smoking (tobacco) complicating childbirth; F17.210 Nicotine dependence, cigarettes, uncomplicated; O99.324 Drug use complicating childbirth; F12.10 Cannabis abuse, uncomplicated; Z86.14 Personal history of Methicillin resistant Staphylococcus aureus infection; O62.3 Precipitate labor; Z3A.34 34 weeks gestation of pregnancy; Z37.0 Single live birth
CPT/HCPCS: 59409; 86900; 86901; 36415 ×2; 86850; 85025; 85027; 86762; 86592; 81001; 87340; 86701; 80307 ×2; 80353; 86803; 86804; G0480 ×4; J2540; J2590; J3490

== ENCOUNTER 2018-12-17 20:28 | Emergency (ER) | payer MEDICAID ==
[2018-12-17] MEDS ORDERED: NALOXONE HCL INJ/PF 0.4 MG/1 ML SDV ONE ×2 (21:22→21:28)
[2018-12-17] MEDS ORDERED: NORMAL SALINE 1000 ML 1,000 ML IV ONE (21:50)
[2018-12-17] MEDS ORDERED: CEFTRIAXONE INJ 1000 MG VIAL IV ONE (21:50)
--- NOTE | 2018-12-17 21:51 | ER Document Report ---
ED General - General Chief Complaint: Overdose Stated Complaint: POSSIBLE OVERDOSE Time Seen by Provider: 12/17/18 20:53 Cannot obtain history due to: Intoxicated, Altered mental status Notes: Patient is a 28-year-old female who presents by EMS due to polysubstance overdose including on opiates. Patient received Narcan in the field as she was initially apneic. She did not lose pulses. Patient has a history of phu ysubstance abuse. Patient is unable to provide any information at time of presentation secondary to her altered mental status. TRAVEL OUTSIDE OF THE [place] IN LAST 30 DAYS: No - Related Data Allergies/Adverse Reactions: cefaclor [From Ceclor] Allergy (Verified 08/09/18 14:33) sumatriptan [From Imitrex] Allergy (Verified 08/09/18 14:33) Past Medical History - General Information source: Emergency Med Personnel, [facility] Records Cannot obtain history due to: Altered mental status - Social History Smoking Status: Current Every Day Smoker Frequency of alcohol use: Occasional Drug Abuse: Heroin, Marijuana, Methamphetamine, Prescription drugs Family History: Reviewed & Not Pertinent Patient has suicidal ideation: No Patient has homicidal ideation: No Pulmonary Medical History: Reports: Hx Asthma Neurological Medical History: Reports: Hx Migraine Renal/ Medical History: Denies: Hx Peritoneal Dialysis Past Surgical History: Reports: Hx Tonsillectomy - Immunizations Hx Diphtheria, Pertussis, Tetanus Vaccination: Yes Review of Systems - Review of Systems -: Yes ROS unobtainable due to patient's medical condition Physical Exam - Vital signs Vitals: Pulse Ox 94 12/17/18 20:35 Interpretation: Tachycardic Notes: PHYSICAL EXAMINATION: GENERAL: Obtunded, effectively unresponsive HEAD: Atraumatic, normocephalic. EYES: Pupils 2 mm, sluggishly reactive bilaterally, sclera anicteric, conjunctiva are normal. ENT: nares patent, oropharynx clear without exudates. Moist mucous membranes. NECK: Normal range of motion, supple without lymphadenopathy LUNGS: Hypoventilatory. Breath sounds clear to auscultation bilaterally and eq ual. No wheezes rales or rhonchi. HEART: Regular tachycardia without murmurs ABDOMEN: Soft,normoactive bowel sounds. No guarding, no rebound. No masses appreciated. EXTREMITIES: no pitting or edema. No cyanosis. NEUROLOGICAL: No response to noxious stimuli in any extremity on initial assessm ent. PSYCH: Obtunded SKIN: Warm, Dry, normal turgor, erythema over the antecubital fossa on the left as well as over the biceps region Course - Re-evaluation Re-evalutation: 12/17/18 21:49 Patient presents with a polysubstance overdose, given naloxone in the field as she was initially apneic but did have pulses. At the time of my assessment the patient is obtunded, does not respond to noxious stimuli although is ventilating. Saturating 93% on room air. I administered 0.8 mg of naloxone and a sending doses starting from an initial dose of 0.04 mg IV. The patient did become more awake, will open her eyes to loud voice. Will maintain this level of mental status until the patient spontaneously clears. She did also have benzodiazepines on her, 1 mg tablet Xanax as well as Tylenol with Benadryl. These pills were confiscated by the police who are present on initial arrival. Will obtain standard tox screen labs, provide IV fluids and continue to monitor the patient. Of note the patient was also noted to have what appears to be an IV drug associated cellulitis of the left antecubital fossa and biceps region. Will give a dose of ceftriaxone. Patient is in guarded condition, will reassess her regular given her altered mental status, respiratory suppression, possible need for Narcan infusion. 12/18/18 2230 Patient continues to wake to loud voice but does not interact. Maintaining oxygenation and ventilatory effort. Continue to monitor at regular intervals 2330 Clinical status is unchanged patient remains lethargic but does wake to loud voice. Vitals remain within acceptable limits. Medical screening labs show findings consistent with polysubstance abuse but otherwise unremarkable 12/18/18 01:22 Patient is now awake, initially argues with me about whether or not she overdosed today but when presented with the overwhelming evidence of a polysubstance overdose as well as ongoing drug use the patient does admit to using multiple drugs today. Denies suicide attempt. Does not wish to seek he lp. States that she is in a methadone clinic. The patient will contact a sober ride for transport home. I have strongly advised cessation of her polysubstance abuse. The patient has been started on cephalexin for a cellulitis of the left upper extremity. At this time will discharge with return precautions and follow-up recommendations. Verbal discharge instructions given a the bedside and opportunity for questions given. Medication warnings reviewed. Patient is in agreement with this plan and has verbalized understanding of return precautions and the need for primary care follow-up in the next 24-72 hours. - Vital Signs Vital signs: Temp Pulse Resp BP Pulse Ox 97.6 F 14 109/71 96 12/17/18 23:40 12/17/18 23:30 12/17/18 23:30 12/17/18 23:30 - Laboratory Result Diagrams: 12/17/18 20:50 12/17/18 20:50 Laboratory results interpreted by me: 12/17/18 12/17/18 12/17/18 20:50 20:50 21:05 RBC 3.64 L Hgb 10.5 L Hct 32.0 L RDW 16.8 H Potassium 3.2 L Glucose 138 H Urine Protein 30 H Urine Urobilinogen 2.0 H Acetaminophen < 10 L - EKG Interpretation by Me Additional EKG results interpreted by me: 12/18/18 01:24 Sinus tachycardia, rate 113. No ST elevations or depressions. QTC is 489. Critical Care Note - Critical Care Note Total time excluding time spent on procedures (mins): 38 Comments: Critical care time spent obtaining history from patient or surrogate, evaluation of patient's response to treatment, examination of patient, ordering and performing treatments and interventions, ordering and review of laboratory studies, re-evaluation of patient's condition, and review of old charts Discharge - Discharge Clinical Impression: Polysubstance abuse, Cellulitis of left upper extremity Opiate overdose Qualifiers: Encounter type: initial encounter Injury intent: accidental or unintentional Q ualified Code(s): T40.601A - Poisoning by unspecified narcotics, accidental (unintentional), initial encounter Condition: Stable Disposition: HOME, SELF-CARE Additional Instructions: You were seen today for opiates. Your urine drug screen is also positive for marijuana, amphetamines, and benzodiazepines. You seem to have a very serious problem with drug use. Please never use opiates of any kind. Over 200 people every day in the [place] from opiate overdoses. Do not become a statistic. You should urgently seek rehab or a similar resource. You can call 0-367-[facility] to find local resources. Return if you have any symptoms that are concerning to you including difficulty breathing, fever, persistent vomiting, or any other symptoms that are concerning to you. The rash is likely due to infection of your skin. This is likely related to your IV drug use. You need to take the antibiotics as prescribed. Do not stop even if the rash goes away until you have completed all the antibiotics. You should also return if you develop fevers with temperature greater than 101, persistent vomiting, worsening pain, or have any other symptoms that are concerning to you. Prescriptions: Cephalexin Monohydrate [Keflex 500 mg Capsule] 500 mg PO Q6H 7 Days capsule
[2018-12-17 22:03] LABS: ABSOLUTE BASOPHILS # (AUTO) 0.1 10^3/uL (0.0-0.2); ABSOLUTE EOSINOPHILS # (AUTO) 0.2 10^3/uL (0.0-0.6); ABSOLUTE LYMPHOCYTES (AUTO) 1.9 10^3/uL (0.5-4.7); ABSOLUTE MONOCYTES (AUTO) 0.3 10^3/uL (0.1-1.4); ABSOLUTE NEUT (AUTO) 4.4 10^3/uL (1.7-8.2); BASOPHILS % (AUTO) 0.8 % (0-2); EOSINOPHILS % (AUTO) 2.7 % (0-6); HEMOGLOBIN 10.5 g/dL (12.0-15.5); LYMPHOCYTES % (AUTO) 27.7 % (13-45); MEAN CORPUSCULAR HGB CONC 32.9 g/dL (32.0-36.0); MEAN CORPUSCULAR VOLUME 88 fl (80-97); MONOCYTES % (AUTO) 3.9 % (3-13); PLATELET COUNT 252 10^3/uL (150-450); RED BLOOD COUNT 3.64 10^6/uL (3.72-5.28); RED CELL DISTRIBUTION WIDTH 16.8 % (11.5-14.0); SEGMENTED NEUTROPHILS % (AUTO) 64.9 % (42-78); TOTAL CELLS COUNTED % (AUTO) 100 %; WHITE BLOOD COUNT 6.7 10^3/uL (4.0-10.5)
[2018-12-17 22:09] LABS: ALANINE AMINOTRANSFERASE 37 U/L (9-52); ALBUMIN 3.8 g/dL (3.5-5.0); ALKALINE PHOSPHATASE 83 U/L (38-126); ANION GAP 11 (5-19); ASPARTATE AMINO TRANSFERASE 25 U/L (14-36); BILIRUBIN,DIRECT 0.2 mg/dL (0.0-0.4); BILIRUBIN,TOTAL 0.3 mg/dL (0.2-1.3); BLOOD UREA NITROGEN 12 mg/dL (7-20); CALCIUM 9.1 mg/dL (8.4-10.2); CARBON DIOXIDE 25 mmol/L (22-30); CHLORIDE 106 mmol/L (98-107); GLUCOSE 138 mg/dL (75-110); POTASSIUM 3.2 mmol/L (3.6-5.0); SALICYLATE 2.8 mg/dL (2.0-20.0); SODIUM 141.7 mmol/L (137-145); TOTAL PROTEIN 7.4 g/dL (6.3-8.2)
[2018-12-17 22:10] LABS: ACETAMINOPHEN < 10 ug/mL (10-30); ALCOHOL < 10 mg/dL (NONE DETECTED)
--- NOTE | 2018-12-17 22:10 | EKG REPORT ---
SEVERITY:- BORDERLINE ECG - SINUS TACHYCARDIA BORDERLINE PROLONGED QT INTERVAL : Confirmed by: Maritza Freitas 17-Dec-2018 22:09:53
[2018-12-17 23:29] LABS: APPEARANCE,URINE SLIGHTLY-CLOUDY; BILIRUBIN,URINE NEGATIVE (NEGATIVE); COLOR,URINE YELLOW; GLUCOSE, URINE NEGATIVE (NEGATIVE); KETONES,URINE NEGATIVE (NEGATIVE); LEUKOCYTE ESTERASE,URINE NEGATIVE (NEGATIVE); NITRITE,URINE NEGATIVE (NEGATIVE); PROTEIN,URINE 30 mg/dL (NEGATIVE); URINE SPECIFIC GRAVITY 1.021
[2018-12-17 23:42] LABS: URINE AMPHETAMINES SCREEN UNCONFIRMED POSITIVE; URINE BARBITURATES SCREEN NEGATIVE; URINE BENZODIAZEPINES SCREEN UNCONFIRMED POSITIVE; URINE COCAINE SCREEN NEGATIVE; URINE MARIJUANA (THC) SCREEN UNCONFIRMED POSITIVE; URINE METHADONE SCREEN NEGATIVE; URINE PHENCYCLIDINE SCREEN NEGATIVE
[2018-12-18 02:43] VITALS: BP 108/81
== END 2018-12-18 03:12 | disposition home or self-care (01) ==
LOC: ER 20:28
DX: T40.601A Poisoning by unspecified narcotics, accidental (unintentional), initial encounter (principal); Y92.59 Other trade areas as the place of occurrence of the external cause; L03.114 Cellulitis of left upper limb; J45.909 Unspecified asthma, uncomplicated; F12.10 Cannabis abuse, uncomplicated; F15.10 Other stimulant abuse, uncomplicated; R00.0 Tachycardia, unspecified; F17.200 Nicotine dependence, unspecified, uncomplicated; Z88.1 Allergy status to other antibiotic agents; Z88.6 Allergy status to analgesic agent
CPT/HCPCS: 93005; 99285; 96361; 96365; 36415; 80307 ×4; 84703; 85025; 80053; 81001; 93010; J2310; J0696; J7030